=== PATIENT | female | born 1990 | race Asian ===

== ENCOUNTER 2019-12-14 14:09 | Emergency (ER) | payer BC, OTHER, SELFPAY ==
[~2019-12-14] VITALS: Ht 162.6 cm; Wt 66.4 kg
[2019-12-14] MEDS ORDERED: MAALOX/HYOSCYAMINE/LIDOCAINE 45 ML BTL PO ONE (14:30)
[2019-12-14] MEDS ORDERED: FAMOTIDINE 20 MG TABLET PO ONE (14:30)
[2019-12-14] MEDS ORDERED: ONDANSETRON ODT 8 MG PO ONE (14:30)
[2019-12-14 14:57] LABS: BASOPHILS % (AUTO) 1 % (0-1); EOSINOPHILS % (AUTO) 2 % (1-7); LYMPHOCYTES % (AUTO) 18 % (22-44); MEAN CORPUSCULAR HEMOGLOBIN 29.4 pg (27.0-34.8); MEAN CORPUSCULAR HGB CONC 33.3 g/dL (32.4-35.8); MEAN PLATELET VOLUME 6.9 fL (7.4-10.4); MONOCYTES % (AUTO) 6 % (2-9); NEUTROPHILS % (AUTO) 75 % (42-75); PLATELET COUNT 358 x10^3/uL (130-400); RED BLOOD COUNT 4.68 x10^6/uL (3.82-5.3)
[2019-12-14 15:04] LABS: ALANINE AMINOTRANSFERASE 20 U/L (12-78); ANION GAP 6 mmol/L (5-15); CALCIUM 9.1 mg/dL (8.5-10.1); CHLORIDE 105 mmol/L (98-107); CREATININE 0.81 mg/dL (0.55-1.02)
[2019-12-14 15:05] LABS: MD NO
--- NOTE | 2019-12-14 15:06 | NUR ---
VOMITING X 3 DAYS. NAUSEA SINCE BEGINNING OF NOVEMBER. DECREASED APPETITE. SEXUALLY ACTIVE; UNPROTECTED. LAST BM: YESTERDAY. LMP: . NO MED TAKEN FOR VOMITING. "A LITTLE TUMMY ACHE".
[2019-12-14 15:21] LABS: ALKALINE PHOSPHATASE 70 U/L (45-117); BILIRUBIN,TOTAL 0.7 mg/dL (0.2-1.0); TOTAL PROTEIN 7.9 g/dL (6.4-8.2)
--- NOTE | 2019-12-14 15:24 | NUR ---
VOIDED SPECIMEN PROVIDED.
--- NOTE | 2019-12-14 15:30 | NUR ---
VO FROM Monique ALONZO: HOLD PEPD
[2019-12-14] MEDS ORDERED: ONDANSETRON ODT 8 MG ONE (15:33)
[2019-12-14] MEDS ORDERED: MAALOX/HYOSCYAMINE/LIDOCAINE 45 ML BTL ONE (15:33)
[2019-12-14 15:50] LABS: MICROSCOPIC INDICATED
--- NOTE | 2019-12-14 16:13 | NUR ---
DR MORALES AT BS FOR EXAM
--- NOTE | 2019-12-14 16:40 | NUR ---
PT RESTING QUIETLY ON GURNEY. NOTIFIED OF PENDING U/S. SIDE RAIL UP X1, CALL LIGHT W/IN REACH.
--- NOTE | 2019-12-14 17:27 | NUR ---
PT ENDORSED TO BREAK RN
[2019-12-14 18:00] VITALS: BP 112/62
== END 2019-12-14 18:39 | disposition home or self-care (01) ==
LOC: ED 15:36
DX: O23.11 Infections of bladder in pregnancy, first trimester (principal); R10.9 Unspecified abdominal pain; R10.2 Pelvic and perineal pain; R11.2 Nausea with vomiting, unspecified; K59.00 Constipation, unspecified; Z3A.01 Less than 8 weeks gestation of pregnancy
CPT/HCPCS: 36415; 76830; 80053; 81001; 83690; 84702; 84703; 85025; 87086; 99284; Q0162